=== PATIENT | male | born 1960 ===

== ENCOUNTER 2017-06-11 15:40 | Inpatient (IN) | payer MEDICAID ==
[2017-06-11] MEDS ORDERED: ceFAZolin 1 GM in Sodium Chloride 0.9% 100 ML IVPB ONE (15:59)
--- NOTE | 2017-06-11 15:59 | ED PDOC ---
Upper Extremity Pain/Injury Time Seen by Provider: 06/11/17 15:45 Chief Complaint (Nursing): Upper Extremity Problem/Injury Chief Complaint (Provider): Right Hand Swelling History Per: Patient History/Exam Limitations: no limitations Onset/Duration Of Symptoms: Days (x1) Current Symptoms Are (Timing): Still Present Additional Complaint(s): Jens Ross is a 57 year old male with a history of heroin and cocaine abuse that presents to the ED with a chief complaint of right hand swelling. Patient believes that he was pricked with a needle on the dorsal aspect of his right hand, but denies any drug use. Patient reports his last tetanus shot was 2 years ago. Past Medical History Reviewed: Historical Data, Nursing Documentation, Vital Signs Vital Signs: Last Vital Signs Temp 97.9 F 06/11/17 15:47 Pulse 69 06/11/17 15:47 Resp 16 06/11/17 15:47 BP 150/91 H 06/11/17 15:47 Pulse Ox 98 06/11/17 15:47 - Medical History PMH: Hepatitis (Hep C, patient states he is taking medication for it) - Family History Family History: States: Unknown Family Hx - Social History Drugs: Other (Patient reports hx of heroin and cocaine abuse) - Immunization History Hx Tetanus Toxoid Vaccination: Yes (last tetanus 2 years ago) - Home Medications Home Medications: Ambulatory Orders Medication Instructions Recorded Buprenorphine HCl/Naloxone HCl 1 each SL DAILY 06/11/17 [Suboxone 8 mg-2 mg Sl Film] Cephalexin [Keflex] 500 mg PO QID #28 capsule 06/11/17 Sofosbuvir/Velpatasvir [Epclusa 1 each PO TID 06/11/17 400 mg-100 mg Tablet] Sulfamethoxazole/Trimethoprim 2 tab PO BID #28 tab 06/11/17 [Bactrim DS 800 mg-160 mg] - Allergies Allergies/Adverse Reactions: Allergies Allergy/AdvReac Type Severity Reaction Status Date / Time No Known Allergies Allergy Verified 06/11/17 15:56 Review of Systems Musculoskeletal: Positive for: Hand Pain (Right hand swelling) Physical Exam - Reviewed Nursing Documentation Reviewed: Yes Vital Signs Reviewed: Yes - Physical Exam Appears: Positive for: Non-toxic, No Acute Distress Head Exam: Positive for: ATRAUMATIC, NORMOCEPHALIC Skin: Positive for: Normal Color, Warm Eye Exam: Positive for: Normal appearance, EOMI, PERRL Cardiovascular/Chest: Positive for: Regular Rate, Rhythm. Negative for: Murmur Respiratory: Positive for: Normal Breath Sounds. Negative for: Wheezing Pulses-Radial (L): 2+ Pulses-Radial (R): 2+ Extremity: Positive for: Normal ROM, Swelling (Moderate swelling of right hand) , Other (Mild erythema right hand, no obvious abscess) Neurologic/Psych: Positive for: Alert, Oriented. Negative for: Motor/Sensory Deficits - Laboratory Results Result Diagrams: 06/11/17 16:56 06/11/17 16:56 - ECG O2 Sat by Pulse Oximetry: 98 (RA) Pulse Ox Interpretation: Normal - Progress ED Course And Treament: HAND XRY JOINTS: Mild degenerative changes of the radiocarpal region. No periarticular osteoporosis seen. SOFT TISSUES: Mild soft tissue swelling along the dorsum and ulnar aspect of the hand. No underlying periosteal reaction or fracture clearly seen. OTHER FINDINGS: None. IMPRESSION: Nonspecific soft tissue swelling. No bony irregularity or fracture identified. No radiopaque foreign body. vaNCOMYCIN 1.5 GM IV X 1 DOSE ANCEF 1 GM IV X 1 DOSE D/W DR. WRIGHT WILL PLACED HAND CONSULT. Medical Decision Making Medical Decision Making: Impression: Infection of Right Hand Plan: * X-Ray Right Hand * BMP * CBC * Blood Culture * Ancef 1 g/100 mL NS * Vancomycin Injection 1500 mg, NaCl 0.9% 500 mL * Reevaluation Scribe Attestation: Documented by Anjana Evans, acting as a scribe for Asia Hogan PA-C. Provider Scribe Attestation: All medical record entries made by the Scribe were at my direction and personally dictated by me. I have reviewed the chart and agree that the record accurately reflects my personal performance of the history, physical exam, medical decision making, and the department course for this patient. I have also personally directed, reviewed, and agree with the discharge instructions and disposition. Disposition - Clinical Impression Clinical Impression: Cellulitis - Patient ED Disposition Is Patient to be Admitted: No - Disposition Disposition: Routine/Home Disposition Time: 19:37 Condition: FAIR - Pt Status Changed To: Hospital Disposition Of: Inpatient - Admit Certification Admit to Inpatient:: After my assessment, the patient will require hospitalization for at least two midnights. This is because of the severity of symptoms shown, intensity of services needed, and/or the medical risk in this patient being treated as an outpatient.
[2017-06-11] MEDS ORDERED: Vancomycin 1 g Inj ONE (16:56)
[2017-06-11 16:59] LABS: BASO % 0.2 % (0.0-2.0); EOS % 0.4 % (0.0-4.0); HEMATOCRIT 36.9 % (34.0-47.0); LYMPH # 1.6 K/uL (1.0-4.3); LYMPH % 21.2 % (20.0-40.0); MEAN CORPUSCULAR HEMOGLOBIN 28.7 pg (27.0-31.0); MEAN CORPUSCULAR HGB CONC 34.2 g/dL (33.0-37.0); MEAN PLATELET VOLUME 8.6 fl (7.2-11.7); MONO # 0.7 K/uL (0.0-0.8); MONO % 8.9 % (0.0-10.0); NEUT # 5.1 K/uL (1.8-7.0); NEUT % 69.3 % (50.0-75.0); NRBC % 0.1 % (0.0-0.0); WHITE BLOOD COUNT 7.3 K/uL (4.8-10.8)
[2017-06-11 17:20] LABS: BLOOD UREA NITROGEN 12 mg/dl (7-17); CALCIUM 8.7 mg/dL (8.4-10.2); CARBON DIOXIDE 25 mmol/L (22-30); CHLORIDE 104 mmol/L (98-107); GFR AFRICAN-AMERICAN > 60; GLUCOSE,RANDOM 116 mg/dL (65-105); POTASSIUM 4.3 MMOL/L (3.6-5.0); SODIUM 140 mmol/l (132-148)
--- NOTE | 2017-06-11 17:46 | RAD ---
PROCEDURE: Right Hand Radiographs. HISTORY: hand swelling COMPARISON: None. FINDINGS: BONES: Three views of the right hand were performed for right hand pain and swelling. No fracture is seen. No dislocation is noted. No erosion is seen. No periosteal reaction is identified. Carpal bones and distal radius are unremarkable without acute fracture. JOINTS: Mild degenerative changes of the radiocarpal region. No periarticular osteoporosis seen. SOFT TISSUES: Mild soft tissue swelling along the dorsum and ulnar aspect of the hand. No underlying periosteal reaction or fracture clearly seen. OTHER FINDINGS: None. IMPRESSION: Nonspecific soft tissue swelling. No bony irregularity or fracture identified. No radiopaque foreign body.
--- NOTE | 2017-06-11 20:27 | CP.PCM.HP ---
History of Present Illness - History of Present Illness History of Present Illness: Chief complaint: Hand swelling History of present illness: This is a 57-year-old male with a past medical history of hepatitis C, heroin and cocaine abuse for which he is on Suboxone, presenting with approximately 2 day history of worsening hand swelling and pain which she describes as pressure-like, acute onset, associated with erythema. 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 He is uncertain if he got scratched at that time. Patient was initiated on vancomycin and was also initiated on Zosyn to cover. Patient is afebrile without a white count, and comfortable at this time. Hand surgery consulted in the emergency room. Review of systems per HPI, all other systems reviewed and negative by me Past medical and surgical history: Hepatitis C, heroin and cocaine abuse. Right hip replacement. Family history: Denies Social history admits to heroin and cocaine use, last use was about a week ago, and patient has a prescription for Suboxone. No home medications No known drug allergies Vital signs as documented. Gen: WDWN, cooperative, alert HEENT: NCAT, PERRL, EOMI, no erythema, exudates, gross hearing intact, no lesions Neck: Soft, supple, no lymphadenopathy, no JVD Heart: +S1S2, RRR, No MRG Lung: CTAB, No WRR Abd: soft, NT, ND, BSx4, no HSM, no masses Ext: warm, well perfused, pedal pulses intact Neuro: AAOx3, Strength equal bilaterally UE/LE Skin: Warm, Dry, no rash Psych: Normal mood, affect with appropriate range Lab results 06/11/17 16:56 06/11/17 16:56 IMAGING STUDIES: hand x-ray showed nonspecific tissue swelling. No bony irregularity or fracture identified. No radiopaque foreign body. This is a 57-year-old male with a past medical history of hepatitis C, heroin and cocaine abuse for which he is on Suboxone, presenting with approximately 2 day history of worsening hand swelling and pain which she describes as pressure- like, acute onset, associated with erythema. 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 He is uncertain if he got scratched at that time. Patient was initiated on vancomycin and was also initiated on Zosyn to cover for both. Patient is afebrile without a white count, and comfortable at this time. Hand surgery consulted in the emergency room. Hand Cellulitis Patient is afebrile no white count Hand appears to be edematous, erythematous, tender, and limited to the hand Patient initiated on Vancomycin and Zosyn, given possible cat or dog scratch/ bite Hand surgery consultation appreciated Pain control Toradol and Tylenol Hepatitis C continue patient's Epclusa Heroin and cocaine abuse Patient states he is on Suboxone and has the prescription Zofran, Catapres, Imodium orders placed for possible withdrawal symptoms VT prophylaxis SCDs Present on Admission - Present on Admission Any Indicators Present on Admission: No Past Patient History - Infectious Disease Hx of Infectious Diseases: None - Past Social History Drugs: Other (Patient reports hx of heroin and cocaine abuse) - CARDIAC Hx Cardiac Disorders: No - PSYCHIATRIC Hx Substance Use: Yes (saboxin) Meds Home Medications: Home Medication List Medication Instructions Recorded Confirmed Type Cephalexin [Keflex] 500 mg PO QID #28 capsule 06/11/17 Rx Sulfamethoxazole/Trimethoprim 2 tab PO BID #28 tab 06/11/17 Rx [Bactrim DS 800 mg-160 mg] Allergies/Adverse Reactions: Allergies Allergy/AdvReac Type Severity Reaction Status Date / Time No Known Allergies Allergy Verified 06/11/17 15:56 Results - Vital Signs Recent Vital Signs: Last Vital Signs Temp 98 F 06/11/17 20:16 Pulse 84 06/11/17 20:16 Resp 18 06/11/17 20:16 BP 140/97 H 06/11/17 20:16 Pulse Ox 98 06/11/17 20:16 - Labs Result Diagrams: 06/11/17 16:56 06/11/17 16:56 Labs: Laboratory Results - last 24 hr 06/11/17 06/11/17 16:56 16:56 WBC 7.3 RBC 4.39 Hgb 12.6 Hct 36.9 MCV 84.0 MCH 28.7 MCHC 34.2 RDW 16.0 H Plt Count 182 MPV 8.6 Neut % (Auto) 69.3 Lymph % (Auto) 21.2 [place] % (Auto) 8.9 Eos % (Auto) 0.4 Baso % (Auto) 0.2 Neut # 5.1 Lymph # 1.6 [place] # 0.7 Eos # 0.0 Baso # 0.0 Sodium 140 Potassium 4.3 Chloride 104 Carbon Dioxide 25 Anion Gap 15 BUN 12 Creatinine 0.6 L Est GFR ( Amer) > 60 Est GFR (Non-Af Amer) > 60 Random Glucose 116 H Calcium 8.7
[2017-06-11] MEDS: Ampicillin/Sulbactam 1.5 GM in Sodium Chloride 0.9% 100 ML IVPB SCH (23:01)
[2017-06-12] MEDS: Ampicillin/Sulbactam 1.5 GM in Sodium Chloride 0.9% 100 ML IVPB SCH ×4 (01:00→17:33)
[2017-06-12 06:46] LABS: BASO % 0.1 % (0.0-2.0); EOS # 0.1 K/uL (0.0-0.7); EOS % 0.9 % (0.0-4.0); HEMATOCRIT 36.5 % (35.0-51.0); LYMPH # 2.6 K/uL (1.0-4.3); LYMPH % 34.9 % (20.0-40.0); MEAN CELL VOLUME 85.2 fl (80.0-94.0); MEAN CORPUSCULAR HEMOGLOBIN 28.3 pg (27.0-31.0); MEAN CORPUSCULAR HGB CONC 33.2 g/dL (33.0-37.0); MEAN PLATELET VOLUME 9.2 fl (7.2-11.7); MONO # 0.7 K/uL (0.0-0.8); MONO % 9.1 % (0.0-10.0); NEUT # 4.2 K/uL (1.8-7.0); NRBC % 0.1 % (0.0-0.0); RED CELL DISTRIBUTION WIDTH 16.1 % (11.5-14.5); WHITE BLOOD COUNT 7.6 K/uL (4.8-10.8)
[2017-06-12 06:47] LABS: BLOOD UREA NITROGEN 12 mg/dl (9-20); CALCIUM 8.5 mg/dL (8.4-10.2); CARBON DIOXIDE 27 mmol/L (22-30); CHLORIDE 105 mmol/L (98-107); GFR AFRICAN-AMERICAN > 60; GLUCOSE,RANDOM 100 mg/dL (75-110); POTASSIUM 3.9 MMOL/L (3.6-5.0); SODIUM 140 mmol/l (132-148)
[2017-06-12] MEDS ORDERED: SOFOSBUVIR PO SCH (09:00)
[2017-06-12] MEDS ORDERED: VELPATASVIR PO SCH (09:00)
--- NOTE | 2017-06-12 16:46 | CP.PCM.PN ---
Subjective - Date & Time of Evaluation Date of Evaluation: 06/12/17 Time of Evaluation: 10:00 - Subjective Subjective: Patient seen and examined bedside. With swelling , erythema and tenderness to right hand. Hemodynamically stable, aebrile WBC 7.6 No area of abscess or fluctuation noted. Objective - Vital Signs/Intake and Output Vital Signs (last 24 hours): Temp Pulse Resp BP Pulse Ox 97.5 F L 72 20 146/80 94 L 06/12/17 08:13 06/12/17 15:45 06/12/17 08:13 06/12/17 15:45 06/12/17 08:13 - Medications Medications: Current Medications Acetaminophen (Tylenol 325mg Tab) 650 mg PO Q6 PRN PRN Reason: Pain, moderate (4-7) Clonidine HCl (Catapres) 0.1 mg PO Q12 PRN PRN Reason: opioid withdrawal sx Last Admin: 06/12/17 15:45 Dose: 0.1 mg Home Med (Sofosbuvir/Velpatasvir [Epclusa 400 Mg-100 Mg Tablet]) 1 each PO TID RICARDA Vancomycin HCl 1 gm/ Sodium (Chloride) 250 mls @ 166.667 mls/hr IVPB Q12H RICARDA PRN Reason: Protocol Last Admin: 06/12/17 06:59 Dose: 166.667 mls/hr Ampicillin Sodium/Sulbactam (Sodium 1.5 gm/ Sodium Chloride) 100 mls @ 100 mls/ hr IVPB Q8 RICARDA PRN Reason: Protocol Last Admin: 06/12/17 10:18 Dose: 100 mls/hr Ketorolac Tromethamine (Toradol) 30 mg IVP Q6 PRN PRN Reason: Pain, severe (8-10) Last Admin: 06/12/17 12:56 Dose: 30 mg Loperamide HCl (Imodium) 2 mg PO QID PRN PRN Reason: Diarrhea Ondansetron HCl (Zofran Inj) 4 mg IVP Q6 PRN PRN Reason: Nausea/Vomiting - Labs Labs: 06/12/17 05:20 06/12/17 05:20 - Constitutional Appears: Non-toxic, No Acute Distress - Head Exam Head Exam: ATRAUMATIC, NORMAL INSPECTION, NORMOCEPHALIC - Eye Exam Eye Exam: EOMI, Normal appearance, PERRL Pupil Exam: NORMAL ACCOMODATION - ENT Exam ENT Exam: Mucous Membranes Moist, Normal Exam - Neck Exam Neck Exam: Full ROM, Normal Inspection - Respiratory Exam Respiratory Exam: Clear to Ausculation Bilateral, NORMAL BREATHING PATTERN. absent: Rales, Rhonchi, Wheezes - Cardiovascular Exam Cardiovascular Exam: REGULAR RHYTHM, RRR, +S1, +S2. absent: JVD - GI/Abdominal Exam GI & Abdominal Exam: Soft, Normal Bowel Sounds. absent: Distended, Guarding, Rebound - Rectal Exam Rectal Exam: Deferred - Extremities Exam Extremities Exam: Full ROM, Normal Capillary Refill, Normal Inspection. absent : Pedal Edema Additional comments: right hand erythema, edema and tenderness pulses intact capillary refill intact - Back Exam Back Exam: NORMAL INSPECTION - Neurological Exam Neurological Exam: Alert, Awake, CN II-XII Intact, Oriented x3 - Psychiatric Exam Psychiatric exam: Normal Affect, Normal Mood - Skin Skin Exam: Dry, Warm Additional comments: multiple healed scars to upper extremities from previous skin abscesses Assessment and Plan - Assessment and Plan (Free Text) Assessment: 57-year-old male with a past medical history of hepatitis C, heroin and cocaine abuse for which he is on Suboxone, presenting with approximately 2 day history of worsening hand swelling and pain which he describes as pressure-like, acute onset, associated with erythema. 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 He is uncertain if he got scratched at that time. Patient was initiated on vancomycin and was also initiated on Zosyn to cover for both. Patient is afebrile without a white count, and comfortable at this time. Hand surgery consulted in the emergency room. 1.Hand Cellulitis Patient is afebrile no white count Hand appears to be edematous, erythematous, tender, and limited to the hand Xray showed soft tissue swelling, edema on Vancomycin and Zosyn, given possible cat or dog scratch/bite Hand surgery consulted Pain control Toradol and Tylenol 2.Hepatitis C continue patient's Epclusa ( patient to bring his own medication ) 3. Heroin and cocaine abuse UDOA positive for cocaine and opiates last use of heroine was 1 week go with injection to left forearm Patient states he is on Suboxone and has the prescription at his pharmacy. Called patient's pharmacy and verified his list of medications( [phone]). As per pharmacy patient has a suboxone prescription given to him on 06/08 for 8 mg po TID by Dr. Vidal Wall . Family will bring in the medications [facility] to be administered while patient is in hospital Jeremy Gilliam Imodium orders placed for possible withdrawal symptoms 4.DVT prophylaxis SCDs
[2017-06-13] MEDS: Ampicillin/Sulbactam 1.5 GM in Sodium Chloride 0.9% 100 ML IVPB SCH ×3 (00:23→17:09)
[2017-06-13 07:02] LABS: BLOOD UREA NITROGEN 15 mg/dl (9-20); CALCIUM 8.9 mg/dL (8.4-10.2); CARBON DIOXIDE 27 mmol/L (22-30); CHLORIDE 106 mmol/L (98-107); GFR AFRICAN-AMERICAN > 60; GLUCOSE,RANDOM 133 mg/dL (75-110); POTASSIUM 3.9 MMOL/L (3.6-5.0); SODIUM 141 mmol/l (132-148)
[2017-06-13 07:14] LABS: HEMATOCRIT 35.6 % (35.0-51.0); MEAN CELL VOLUME 83.6 fl (80.0-94.0); MEAN CORPUSCULAR HEMOGLOBIN 28.9 pg (27.0-31.0); MEAN CORPUSCULAR HGB CONC 34.6 g/dL (33.0-37.0); RED CELL DISTRIBUTION WIDTH 15.8 % (11.5-14.5); WHITE BLOOD COUNT 6.4 K/uL (4.8-10.8)
--- NOTE | 2017-06-13 13:36 | CP.PCM.PN ---
Subjective - Date & Time of Evaluation Date of Evaluation: 06/13/17 Time of Evaluation: 10:00 - Subjective Subjective: Patient seen and examined bedside. Feeling better.Hemodynamically stable, afebrile. No acute issues overnight. Swelling and redness to right hand still present , mildly better. Objective - Vital Signs/Intake and Output Vital Signs (last 24 hours): Temp Pulse Resp BP Pulse Ox 97.9 F 62 18 147/83 96 06/13/17 07:54 06/13/17 07:54 06/13/17 07:54 06/13/17 07:54 06/13/17 07:54 - Medications Medications: Current Medications Acetaminophen (Tylenol 325mg Tab) 650 mg PO Q6 PRN PRN Reason: Pain, moderate (4-7) Clonidine HCl (Catapres) 0.1 mg PO Q12 PRN PRN Reason: opioid withdrawal sx Last Admin: 06/12/17 15:45 Dose: 0.1 mg Home Med (Sofosbuvir/Velpatasvir [Epclusa 400 Mg-100 Mg Tablet]) 1 each PO TID RICARDA Vancomycin HCl 1 gm/ Sodium (Chloride) 250 mls @ 166.667 mls/hr IVPB Q12H RICARDA PRN Reason: Protocol Last Admin: 06/13/17 07:50 Dose: 166.667 mls/hr Ampicillin Sodium/Sulbactam (Sodium 1.5 gm/ Sodium Chloride) 100 mls @ 100 mls/ hr IVPB Q8 RICARDA PRN Reason: Protocol Last Admin: 06/13/17 09:00 Dose: 100 mls/hr Ketorolac Tromethamine (Toradol) 30 mg IVP Q6 PRN PRN Reason: Pain, severe (8-10) Last Admin: 06/13/17 08:30 Dose: 30 mg Loperamide HCl (Imodium) 2 mg PO QID PRN PRN Reason: Diarrhea Ondansetron HCl (Zofran Inj) 4 mg IVP Q6 PRN PRN Reason: Nausea/Vomiting - Labs Labs: 06/13/17 06:20 06/13/17 06:20 - Constitutional Appears: Non-toxic, No Acute Distress - Head Exam Head Exam: ATRAUMATIC, NORMAL INSPECTION, NORMOCEPHALIC - Eye Exam Eye Exam: EOMI, Normal appearance, PERRL Pupil Exam: NORMAL ACCOMODATION - ENT Exam ENT Exam: Mucous Membranes Moist, Normal Exam - Neck Exam Neck Exam: Full ROM, Normal Inspection - Respiratory Exam Respiratory Exam: Clear to Ausculation Bilateral, NORMAL BREATHING PATTERN. absent: Rales, Rhonchi, Wheezes - Cardiovascular Exam Cardiovascular Exam: REGULAR RHYTHM, RRR, +S1, +S2. absent: JVD - GI/Abdominal Exam GI & Abdominal Exam: Soft, Normal Bowel Sounds. absent: Distended, Guarding, Tenderness, Rebound - Rectal Exam Rectal Exam: Deferred - Extremities Exam Extremities Exam: Full ROM, Normal Capillary Refill, Normal Inspection Additional comments: right hand swelling and redness pulses present capillary refill intact - Back Exam Back Exam: NORMAL INSPECTION - Neurological Exam Neurological Exam: Alert, Awake, CN II-XII Intact, Oriented x3 - Psychiatric Exam Psychiatric exam: Normal Affect, Normal Mood - Skin Skin Exam: Dry, Normal Color, Warm Additional comments: multiple upper extremities scars Assessment and Plan - Assessment and Plan (Free Text) Assessment: 57-year-old male with a past medical history of hepatitis C, heroin and cocaine abuse for which he is on Suboxone, presenting with approximately 2 day history of worsening hand swelling and pain which he describes as pressure-like, acute onset, associated with erythema. 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 He is uncertain if he got scratched at that time. Patient was initiated on vancomycin and was also initiated on Zosyn to cover for both. Patient is afebrile without a white count, and comfortable at this time. Hand surgery consulted in the emergency room. Right hand still swollen and with erythema 1.Hand Cellulitis Patient is afebrile no white count Hand appears to be edematous, erythematous, tender, and limited to the hand Xray showed soft tissue swelling, edema on Vancomycin and Zosyn, given possible cat or dog scratch/bite Hand surgery consulted Pain control Toradol and Tylenol 2.Hepatitis C continue patient's Epclusa ( patient to bring his own medication ) 3. Heroin and cocaine abuse UDOA positive for cocaine and opiates last use of heroine was 1 week go with injection to left forearm Patient is on Suboxone . Family brought in the prescription . On 8 mg po TID Zofran, Catapres, Imodium orders placed for possible withdrawal symptoms 4.DVT prophylaxis SCDs
--- NOTE | 2017-06-13 16:01 | CP.PCM.CON ---
History of Present Illness - History of Present Illness History of Present Illness: Plastic surgery consult note for Dr. Avendano Consulted for: right hand cellulitis Patient is a 57M with active heroin and cocain abuse who presented to the ED 2 days ago with worsening right hand redness and swelling. Patient states that he injected his right hand with heroin and noticed it becoming swollen, painful, and erythematous the next day. The second day after injection the symptoms got worse so he came to the ER. Patient denied fevers, chills, numbness, tingling, focal weakness, chest pain, SOB, or any other symptoms. Patient states that he has had this occur once before. Patient reports his symptoms have greatly improved after 2 days of antibiotics. Review of Systems - Review of Systems All systems: reviewed and no additional remarkable complaints except (as per HPI ) - Constitutional Constitutional: As Per HPI - Cardiovascular Cardiovascular: absent: Chest Pain, Chest Pain at Rest, Dyspnea - Respiratory Respiratory: absent: Cough, Dyspnea, Wheezing - Gastrointestinal Gastrointestinal: absent: Abdominal Pain, Nausea, Vomiting - Genitourinary Genitourinary: absent: Change in Urinary Stream, Difficulty Urinating, Dysuria - Musculoskeletal Musculoskeletal: absent: Muscle Weakness, Numbness, Tingling - Integumentary Integumentary: As Per HPI - Neurological Neurological: As Per HPI. absent: Numbness, Focal Weakness, Lack of Coordination, Sensory Deficit, Tingling Past Patient History - Infectious Disease Hx of Infectious Diseases: None - Past Medical History & Family History Past Medical History?: Yes - Past Social History Smoking Status: Former Smoker - CARDIAC Hx Cardiac Disorders: No - PULMONARY Hx Respiratory Disorders: No - NEUROLOGICAL Hx Neurological Disorder: No - HEENT Hx HEENT Problems: No - RENAL Hx Chronic Kidney Disease: No - ENDOCRINE/METABOLIC Hx Endocrine Disorders: No - HEMATOLOGICAL/ONCOLOGICAL Hx Hepatitis C: Yes - INTEGUMENTARY Hx Dermatological Problems: No - MUSCULOSKELETAL/RHEUMATOLOGICAL Hx Falls: No - GASTROINTESTINAL Hx Gastrointestinal Disorders: No - GENITOURINARY/GYNECOLOGICAL Hx Genitourinary Disorders: No - PSYCHIATRIC Hx Substance Use: Yes - SURGICAL HISTORY Other/Comment: rt hip replacement - ANESTHESIA Hx Anesthesia: Yes Hx Anesthesia Reactions: No Meds Home Medications: Home Medication List Medication Instructions Recorded Confirmed Type Cephalexin [Keflex] 500 mg PO QID #28 capsule 06/11/17 Rx Sulfamethoxazole/Trimethoprim 2 tab PO BID #28 tab 06/11/17 Rx [Bactrim DS 800 mg-160 mg] Allergies/Adverse Reactions: Allergies Allergy/AdvReac Type Severity Reaction Status Date / Time No Known Allergies Allergy Verified 06/11/17 15:56 - Medications Medications: Current Medications Acetaminophen (Tylenol 325mg Tab) 650 mg PO Q6 PRN PRN Reason: Pain, moderate (4-7) Clonidine HCl (Catapres) 0.1 mg PO Q12 PRN PRN Reason: opioid withdrawal sx Last Admin: 06/12/17 15:45 Dose: 0.1 mg Home Med (Sofosbuvir/Velpatasvir [Epclusa 400 Mg-100 Mg Tablet]) 1 each PO TID RICARDA Home Med (Buprenorphine Hcl/Naloxone Hcl [Suboxone 8 Mg-2 Mg Sl Film]) 1 each SL DAILY RICARDA Vancomycin HCl 1 gm/ Sodium (Chloride) 250 mls @ 166.667 mls/hr IVPB Q12H RICARDA PRN Reason: Protocol Last Admin: 06/13/17 07:50 Dose: 166.667 mls/hr Ampicillin Sodium/Sulbactam (Sodium 1.5 gm/ Sodium Chloride) 100 mls @ 100 mls/ hr IVPB Q8 RICARDA PRN Reason: Protocol Last Admin: 06/13/17 09:00 Dose: 100 mls/hr Ketorolac Tromethamine (Toradol) 30 mg IVP Q6 PRN PRN Reason: Pain, severe (8-10) Last Admin: 06/13/17 14:53 Dose: 30 mg Loperamide HCl (Imodium) 2 mg PO QID PRN PRN Reason: Diarrhea Ondansetron HCl (Zofran Inj) 4 mg IVP Q6 PRN PRN Reason: Nausea/Vomiting Physical Exam - Constitutional Appears: Non-toxic, No Acute Distress - Head Exam Head Exam: ATRAUMATIC, NORMOCEPHALIC - Eye Exam Eye Exam: Normal appearance. absent: Conjunctival injection, Scleral icterus - ENT Exam ENT Exam: Mucous Membranes Moist, Normal Oropharynx - Respiratory Exam Respiratory Exam: NORMAL BREATHING PATTERN. absent: Accessory Muscle Use, Respiratory Distress - Cardiovascular Exam Cardiovascular Exam: RRR - GI/Abdominal Exam GI & Abdominal Exam: Soft. absent: Distended, Tenderness - Extremities Exam Extremities exam: Negative for: calf tenderness, pedal edema, pedal pulses present Additional comments: right dorsal hand with 2+ non-pitting edema extending into the digits, erythematous, no induration or fluctuation, no drainage. Muscle strength and neurovascular exam intact - Neurological Exam Neurological exam: Alert, Oriented x3 - Psychiatric Exam Psychiatric exam: Normal Affect, Normal Mood - Skin Skin Exam: Dry, Intact, Normal Color, Warm Results - Vital Signs Recent Vital Signs: Last Vital Signs Temp 97.9 F 06/13/17 07:54 Pulse 62 06/13/17 07:54 Resp 18 06/13/17 07:54 BP 147/83 06/13/17 07:54 Pulse Ox 96 06/13/17 07:54 - Labs Result Diagrams: 06/13/17 06:20 06/13/17 06:20 Labs: Laboratory Results - last 24 hr 06/12/17 06/13/17 06/13/17 20:18 06:20 06:20 WBC 6.4 RBC 4.26 L Hgb 12.3 Hct 35.6 MCV 83.6 MCH 28.9 MCHC 34.6 RDW 15.8 H Plt Count 178 Sodium 141 Potassium 3.9 Chloride 106 Carbon Dioxide 27 Anion Gap 12 BUN 15 Creatinine 0.8 Est GFR ( Amer) > 60 Est GFR (Non-Af Amer) > 60 Random Glucose 133 H Calcium 8.9 Vancomycin Trough < 5.0 L Assessment & Plan - Assessment and Plan (Free Text) Assessment: 57M with cellulitis of right hand Plan: -No indication for surgical intervention at this time. No evidence of a drainable abscess or necrotic tissue or systemic infection -Continue IV antibiotics per primary's discretion -Continue to trend CBC -Pain medication PRN -Serial exams -Will continue to follow Discussed with Dr. Juan Alberto Lindsey, PGY2
[2017-06-13] MEDS: Patient's Own Med (Buprenorphine Hcl/Naloxone Hcl [Suboxone 8 Mg-2 Mg Sl Film] 1 EACH) SL SCH (16:04)
[2017-06-13 17:22] VITALS: RESP 20
[2017-06-14] MEDS: Ampicillin/Sulbactam 1.5 GM in Sodium Chloride 0.9% 100 ML IVPB SCH ×2 (01:28→09:11)
[2017-06-14 06:35] LABS: HEMATOCRIT 38.3 % (35.0-51.0); MEAN CELL VOLUME 84.4 fl (80.0-94.0); MEAN CORPUSCULAR HEMOGLOBIN 28.3 pg (27.0-31.0); MEAN CORPUSCULAR HGB CONC 33.6 g/dL (33.0-37.0); RED CELL DISTRIBUTION WIDTH 15.7 % (11.5-14.5); WHITE BLOOD COUNT 6.7 K/uL (4.8-10.8)
[2017-06-14 06:48] LABS: BLOOD UREA NITROGEN 18 mg/dl (9-20); CALCIUM 9.2 mg/dL (8.4-10.2); CARBON DIOXIDE 27 mmol/L (22-30); CHLORIDE 106 mmol/L (98-107); GFR AFRICAN-AMERICAN > 60; GLUCOSE,RANDOM 99 mg/dL (75-110); POTASSIUM 4.2 MMOL/L (3.6-5.0); SODIUM 142 mmol/l (132-148)
[2017-06-14 08:10] VITALS: BP 155/90; PULSE 55; TEMP 97.4; O2SAT 97
[2017-06-14] MEDS: Patient's Own Med (Buprenorphine Hcl/Naloxone Hcl [Suboxone 8 Mg-2 Mg Sl Film] 1 EACH) SL SCH (09:21)
--- NOTE | 2017-06-14 09:49 | CP.PCM.PN ---
Subjective - Date & Time of Evaluation Date of Evaluation: 06/14/17 Time of Evaluation: 06:50 - Subjective Subjective: Patient seen and examined at bedside this AM. NAEO. Patient states that pain and swelling have greatly improved and denies fevers Objective - Vital Signs/Intake and Output Vital Signs (last 24 hours): Temp Pulse Resp BP Pulse Ox 97.4 F L 55 L 20 155/90 H 97 06/14/17 08:10 06/14/17 08:10 06/14/17 08:10 06/14/17 08:10 06/14/17 08:10 - Medications Medications: Current Medications Acetaminophen (Tylenol 325mg Tab) 650 mg PO Q6 PRN PRN Reason: Pain, moderate (4-7) Clonidine HCl (Catapres) 0.1 mg PO Q12 PRN PRN Reason: opioid withdrawal sx Last Admin: 06/13/17 17:05 Dose: 0.1 mg Home Med (Sofosbuvir/Velpatasvir [Epclusa 400 Mg-100 Mg Tablet]) 1 each PO TID [facility] Home Med (Buprenorphine Hcl/Naloxone Hcl [Suboxone 8 Mg-2 Mg Sl Film]) 1 each SL DAILY [facility] Last Admin: 06/14/17 09:21 Dose: Not Given Vancomycin HCl 1 gm/ Sodium (Chloride) 250 mls @ 166.667 mls/hr IVPB Q12H RICARDA PRN Reason: Protocol Last Admin: 06/14/17 09:12 Dose: 166.667 mls/hr Ampicillin Sodium/Sulbactam (Sodium 1.5 gm/ Sodium Chloride) 100 mls @ 100 mls/ hr IVPB Q8 RICARDA PRN Reason: Protocol Last Admin: 06/14/17 09:11 Dose: 100 mls/hr Ketorolac Tromethamine (Toradol) 30 mg IVP Q6 PRN PRN Reason: Pain, severe (8-10) Last Admin: 06/14/17 09:18 Dose: 30 mg Loperamide HCl (Imodium) 2 mg PO QID PRN PRN Reason: Diarrhea Ondansetron HCl (Zofran Inj) 4 mg IVP Q6 PRN PRN Reason: Nausea/Vomiting - Labs Labs: 06/14/17 06:00 06/14/17 06:00 - Constitutional Appears: Non-toxic, No Acute Distress - Head Exam Head Exam: ATRAUMATIC, NORMOCEPHALIC - Eye Exam Eye Exam: Normal appearance. absent: Conjunctival injection, Scleral icterus - ENT Exam ENT Exam: Mucous Membranes Moist, Normal Oropharynx - Respiratory Exam Respiratory Exam: NORMAL BREATHING PATTERN. absent: Accessory Muscle Use, Respiratory Distress - Cardiovascular Exam Cardiovascular Exam: RRR - Extremities Exam Extremities Exam: absent: Calf Tenderness, Pedal Edema, Tenderness Additional comments: right dorsal hand with erythema and 1+ non-pitting edema much improved since yesterday. No area of fluctuance or drainage - Neurological Exam Neurological Exam: Alert, Awake, Oriented x3 - Psychiatric Exam Psychiatric exam: Normal Affect, Normal Mood - Skin Skin Exam: Dry, Intact, Normal Color, Warm Assessment and Plan - Assessment and Plan (Free Text) Assessment: 57M with cellulitis of right hand Plan: -No indication for surgical intervention. Patient clinically improving -Continue IV antibiotics per primary -Pain medication PRN -Serial exams Discussed with Dr. Juan Alberto Lindsey, PGY2
--- NOTE | 2017-06-14 11:32 | CP.PCM.DIS ---
Provider - Provider Date of Admission: 06/12/17 18:04 Attending physician: Jose Murry MD Consults: Hand Surgery : DR Avendano Time Spent in preparation of Discharge (in minutes): 35 Diagnosis - Discharge Diagnosis (1) Cellulitis of hand Status: Acute (2) Hep C w/o coma, chronic Status: Chronic (3) IVDU (intravenous drug user) Status: Chronic (4) Heroin abuse Status: Chronic (5) Cocaine abuse Status: Chronic Hospital Course - Lab Results Lab Results: Micro Results 06/11/17 17:15 Blood Blood Culture - Preliminary NO GROWTH AFTER 48 HOURS 06/11/17 16:56 Blood Blood Culture - Preliminary NO GROWTH AFTER 48 HOURS Most Recent Lab Values WBC 6.7 K/uL (4.8-10.8) 06/14/17 06:00 RBC 4.54 Mil/uL (4.40-5.90) 06/14/17 06:00 Hgb 12.9 g/dL (12.0-18.0) 06/14/17 06:00 Hct 38.3 % (35.0-51.0) 06/14/17 06:00 MCV 84.4 fl (80.0-94.0) 06/14/17 06:00 MCH 28.3 pg (27.0-31.0) 06/14/17 06:00 MCHC 33.6 g/dL (33.0-37.0) 06/14/17 06:00 RDW 15.7 % (11.5-14.5) H 06/14/17 06:00 Plt Count 191 K/uL (130-400) 06/14/17 06:00 MPV 9.2 fl (7.2-11.7) 06/12/17 05:20 Neut % (Auto) 55.0 % (50.0-75.0) 06/12/17 05:20 Lymph % (Auto) 34.9 % (20.0-40.0) 06/12/17 05:20 [place] % (Auto) 9.1 % (0.0-10.0) 06/12/17 05:20 Eos % (Auto) 0.9 % (0.0-4.0) 06/12/17 05:20 Baso % (Auto) 0.1 % (0.0-2.0) 06/12/17 05:20 Neut # 4.2 K/uL (1.8-7.0) 06/12/17 05:20 Lymph # 2.6 K/uL (1.0-4.3) 06/12/17 05:20 [place] # 0.7 K/uL (0.0-0.8) 06/12/17 05:20 Eos # 0.1 K/uL (0.0-0.7) 06/12/17 05:20 Baso # 0.0 K/uL (0.0-0.2) 06/12/17 05:20 Sodium 142 mmol/l (132-148) 06/14/17 06:00 Potassium 4.2 MMOL/L (3.6-5.0) 06/14/17 06:00 Chloride 106 mmol/L (98-107) 06/14/17 06:00 Carbon Dioxide 27 mmol/L (22-30) 06/14/17 06:00 Anion Gap 14 (10-20) 06/14/17 06:00 BUN 18 mg/dl (9-20) 06/14/17 06:00 Creatinine 0.7 mg/dL (0.8-1.5) L 06/14/17 06:00 Est GFR ( Amer) > 60 06/14/17 06:00 Est GFR (Non-Af Amer) > 60 06/14/17 06:00 Random Glucose 99 mg/dL (75-110) 06/14/17 06:00 Calcium 9.2 mg/dL (8.4-10.2) 06/14/17 06:00 Vancomycin Trough < 5.0 ug/mL (5.0-10.0) L 06/12/17 20:18 Urine Opiates Screen Positive (NEGATIVE) H 06/12/17 13:05 Urine Methadone Screen Negative (NEGATIVE) 06/12/17 13:05 Ur Barbiturates Screen Negative (NEGATIVE) 06/12/17 13:05 Ur Phencyclidine Scrn Negative (NEGATIVE) 06/12/17 13:05 Ur Amphetamines Screen Negative (NEGATIVE) 06/12/17 13:05 U Benzodiazepines Scrn Negative (NEGATIVE) 06/12/17 13:05 U Oth Cocaine Metabols Positive (NEGATIVE) H 06/12/17 13:05 U Cannabinoids Screen Negative (NEGATIVE) 06/12/17 13:05 - Hospital Course Hospital Course: 57-year-old male with a past medical history of hepatitis C, heroin and cocaine abuse for which he is on Suboxone, presenting with approximately 2 day history of worsening hand swelling and pain which he describes as pressure-like, acute onset, associated with erythema. 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 He is uncertain if he got scratched at that time. Patient was initiated on vancomycin and was also initiated on Zosyn to cover for both. Patient is afebrile without a white count, and comfortable at this time. Hand surgery consulted in the emergency room. 1.Hand Cellulitis Patient is afebrile no white count Hand now very much improved , erythema and swelling resolved , no able to do full ROM of hand Xray showed soft tissue swelling, edema on Vancomycin and Unasyn Hand surgery consulted- no surgical intervention Pain control Toradol and Tylenol Pt was advised to stay in hospital to continue IV antibiotic treatment however refused despite explanation of benefits /risk Will d/c pt on PO Bactrim and Keflex Pt is to ff up with his own ID doctor in [place] Advised to return to the ED if his sxs recurs 2.Hepatitis C continue patient's Epclusa ( patient to bring his own medication ) 3. Heroin and cocaine abuse UDOA positive for cocaine and opiates last use of heroine was 1 week ago with injection to left forearm Patient is on Suboxone . Family brought in the prescription . On 8 mg po TID Zofran, Catapres, Imodium orders placed for possible withdrawal symptoms 4.DVT prophylaxis SCDs Discharge Exam - Head Exam Head Exam: ATRAUMATIC, NORMAL INSPECTION, NORMOCEPHALIC - Eye Exam Eye Exam: EOMI, Normal appearance, PERRL Pupil Exam: NORMAL ACCOMODATION - ENT Exam ENT Exam: Mucous Membranes Moist, Normal External Ear Exam - Neck Exam Neck exam: Full Rom - Respiratory Exam Respiratory Exam: absent: Respiratory Distress - Cardiovascular Exam Cardiovascular Exam: REGULAR RHYTHM, +S1, +S2 - GI/Abdominal Exam GI & Abdominal Exam: Normal Bowel Sounds, Soft. absent: Tenderness - Extremities Exam Extremities exam: full ROM, normal capillary refill, pedal pulses present Additional comments: Right hand swellinga nd erythema resolved, now able to make fist and do all ROM - Back Exam Back exam: FULL ROM, NORMAL INSPECTION. absent: CVA tenderness (L), CVA tenderness (R), paraspinal tenderness, vertebral tenderness - Neurological Exam Neurological exam: Alert, CN II-XII Intact, Oriented x3, Reflexes Normal - Psychiatric Exam Psychiatric exam: Normal Affect, Normal Mood - Skin Skin Exam: Dry, Normal Color, Warm Additional comments: old scars jamarcus on extremities from skin popping and from IV drug Discharge Plan - Discharge Medications Prescriptions: Cephalexin [Keflex] 500 mg PO QID #28 capsule Cephalexin [Keflex] 500 mg PO Q12 #20 capsule cloNIDine [Catapres] 0.1 mg PO Q12 #60 tab Sulfamethoxazole/Trimethoprim [Bactrim DS 800 mg-160 mg] 1 tab PO BID #20 tab - Follow Up Plan Condition: IMPROVED Disposition: HOME/ ROUTINE Instructions: Cellulitis (DC) Additional Instructions: Pt refused to stay for IV antibiotics ff up with Dr Avendano in 1 wk appt with own ID specialist negra appt with PMD negra Referrals: Sidney Avendano DO [Resident] -
== END 2017-06-14 14:09 | disposition home or self-care (01) | DRG 277 ==
LOC: H.ER 15:40 → H.ERHOLD 19:42 → EDSEX 19:42 → H.MEDSURG1 22:00 → OBSVTOIN 06-12 18:04
DX: L03.113 Cellulitis of right upper limb (principal); B18.2 Chronic viral hepatitis C; F11.10 Opioid abuse, uncomplicated; F14.10 Cocaine abuse, uncomplicated; Z96.641 Presence of right artificial hip joint; Z87.891 Personal history of nicotine dependence

== ENCOUNTER 2018-11-08 16:40 | Emergency (ER) | payer MEDICAID ==
[2018-11-08 17:18] VITALS: O2SAT 99
[2018-11-08] MEDS ORDERED: Albuterol-Ipratrop 3 mg / 0.5 (3 ml) UD INH STA ×2 (18:32→19:51)
[2018-11-08] MEDS ORDERED: Albuterol-Ipratrop 3 mg / 0.5 (3 ml) UD ONE ×2 (18:36→20:19)
--- NOTE | 2018-11-08 19:20 | ED PDOC ---
History of Present Illness History of Present Illness: 58 year old male with a past medical history of HIV and prior heroin dependence on methadone who is presenting to the ED for evaluation of cough and body aches ongoing for 4-5 days. Patient states that cough is associated with greenish sputum that is getting thicker and now also complains of chest congestion. He also complains of subjective fever yesterday but denies any night sweats or c hills. Patient also denies any nausea, vomiting, diarrhea, chest pain, shortness of breath, or ear pain. Of note, patient also complains of mild sore throat and body aches, stating that he feels weak. PMD: none provided HPI: Influenza Time Seen by Provider: 11/08/18 17:55 Chief Complaint: Cough, Cold, Congestion Chief Complaint (Provider): Cough, Cold, Congestion History Per: Patient Exam Limitations: no limitations Onset/Duration Of Symptoms: Days Symptoms include: fever, bodyaches, sore throat, cough. denies: vomiting, diarrhea, chest pain, difficulty breathing Past Medical History Reviewed: Historical Data, Nursing Documentation, Vital Signs Vital Signs: Last Vital Signs Temp 98.3 F 11/08/18 17:16 Pulse 77 11/08/18 17:16 Resp 15 11/08/18 17:16 BP 126/72 11/08/18 17:16 Pulse Ox 99 11/08/18 17:16 - Medical History PMH: Hepatitis (Hep C, patient states he is taking medication for it), HIV Denies: Chronic Kidney Disease - Surgical History Surgical History: No Surg Hx - Family History Family History: States: Unknown Family Hx - Social History Current smoker - smoking cessation education provided: No Ex-Smoker (has not smoked in the last 12 months): Yes Alcohol: None Drugs: Opiates - Immunization History Hx Tetanus Toxoid Vaccination: Yes (last tetanus 2 years ago) - Home Medications Home Medications: Ambulatory Orders Medication Instructions Recorded Buprenorphine HCl/Naloxone HCl 1 each SL DAILY 06/11/17 [Suboxone 8 mg-2 mg Sl Film] Cephalexin [Keflex] 500 mg PO QID #28 capsule 06/11/17 Sofosbuvir/Velpatasvir [Epclusa 1 each PO TID 06/11/17 400 mg-100 mg Tablet] Cephalexin [Keflex] 500 mg PO Q12 #20 capsule 10/18/17 Sulfamethoxazole/Trimethoprim 1 tab PO BID #20 tab 06/14/17 [Bactrim DS 800 mg-160 mg] cloNIDine [Catapres] 0.1 mg PO Q12 #60 tab 06/14/17 cloNIDine [Catapres] 0.1 mg PO Q12 PRN tab 06/14/17 Amoxicillin/Clavulanate [Augmentin 1 tab PO BID #14 tab 05/04/18 875 MG-125 MG] Ibuprofen [Motrin] 600 mg PO Q6 #20 tab 05/04/18 Albuterol 0.083% [Albuterol 3 ml IH Q6 PRN 7 Days neb 11/08/18 Sulfate 3 Ml] Guaifenesin [Mucinex] 600 mg PO BID PRN 7 Days 11/08/18 tab.er.12h - Allergies Allergies/Adverse Reactions: Allergies Allergy/AdvReac Type Severity Reaction Status Date / Time No Known Allergies Allergy Verified 11/08/18 17:18 Review of Systems ROS Statement: Except As Marked, All Systems Reviewed And Found Negative Constitutional: Positive for: Fever, Weakness, Other (body aches ). Negative for: Chills, Sweats ENT: Positive for: Nose Discharge, Throat Pain. Negative for: Ear Pain Cardiovascular: Negative for: Chest Pain Respiratory: Positive for: Cough. Negative for: Shortness of Breath Gastrointestinal: Negative for: Nausea, Vomiting, Abdominal Pain Physical Exam - Reviewed Nursing Documentation Reviewed: Yes Vital Signs Reviewed: Yes - Physical Exam Appears: Positive for: Non-toxic, No Acute Distress, Uncomfortable Head Exam: Positive for: ATRAUMATIC, NORMAL INSPECTION, NORMOCEPHALIC Skin: Positive for: Normal Color, Warm, DRY ENT: Positive for: Normal ENT Inspection Neck: Positive for: Normal, Painless ROM Cardiovascular/Chest: Positive for: Regular Rate, Rhythm. Negative for: Murmur Respiratory: Positive for: Rhonchi (bilateral on expiration ). Negative for: Respiratory Distress Extremity: Positive for: Normal ROM. Negative for: Deformity, Swelling Lymphatic: Positive for: Normal Exam Neurological/Psych: Positive for: Awake, Alert, Normal Tone, Oriented (x3). Negative for: Motor/Sensory Deficits Medical Decision Making Medical Decision Making: Time: 18:32 Plan: --BMP --CBC --Chest X-ray PA/LAT --Duoneb x1 3 ml INH --Peak Flow Pre/Post Tx --Influenza A B Reevaluation: 20:00 Patient is improved but continues to have mild rhonchi and wheezes bilaterally duoneb x 1 ordered. chest xray read by me: no consolidation or active pulmonary disease appreciated; possible bronchitis. Reevaluation:21:00 Lungs with mild intermittent diffuse expiratory wheezes bilaterally, no rhonchi. He reports feeling better and is stable for Discharge home with return instructions. Scribe Attestation: Documented by Soha Cee, acting as a scribe for Gabrielle Moeller PA-C. Provider Scribe Attestation: All medical record entries made by the Scribe were at my direction and personally dictated by me. I have reviewed the chart and agree that the record accurately reflects my personal performance of the history, physical exam, medical decision making, and the department course for this patient. I have also personally directed, reviewed, and agree with the discharge instructions and disposition. - Laboratory Results Result Diagrams: 11/08/18 19:00 11/08/18 19:00 - ECG O2 Sat by Pulse Oximetry: 99 (RA) Pulse Ox Interpretation: Normal Disposition - Clinical Impression Clinical Impression: Bronchitis - Patient ED Disposition Is Patient to be Admitted: No - Disposition Disposition: Routine/Home Disposition Time: 21:10 Condition: STABLE Additional Instructions: Follow up with your primary care provider within the next week. Use Mucinex and Albuterol for cough. Return to ER if you develop fevers, chills, shortness of breath or night sweats. Prescriptions: Albuterol 0.083% [Albuterol Sulfate 3 Ml] 3 ml IH Q6 PRN 7 Days neb PRN Reason: Cough Guaifenesin [Mucinex] 600 mg PO BID PRN 7 Days tab.er.12h PRN Reason: Cough Instructions: Acute Bronchitis, Adult (DC) Forms: [facility] (Armenian) Print Language: BERMUDIAN
[2018-11-08 19:45] LABS: BASO % 0.2 % (0.0-2.0); EOS % 0.3 % (0.0-4.0); HEMOGLOBIN 12.4 g/dL (12.0-18.0); LYMPH # 1.8 K/uL (1.0-4.3); LYMPH % 29.9 % (20.0-40.0); MEAN CELL VOLUME 82.1 fl (80.0-94.0); MEAN CORPUSCULAR HEMOGLOBIN 27.1 pg (27.0-31.0); MEAN PLATELET VOLUME 8.6 fl (7.2-11.7); MONO # 0.6 K/uL (0.0-0.8); MONO % 9.4 % (0.0-10.0); NEUT # 3.7 K/uL (1.8-7.0); NEUT % 60.2 % (50.0-75.0); NRBC % 0.1 % (0.0-0.0); RBC 4.57 Mil/uL (4.40-5.90); RED CELL DISTRIBUTION WIDTH 15.3 % (11.5-14.5); WHITE BLOOD COUNT 6.1 K/uL (4.8-10.8)
[2018-11-08 19:52] LABS: BLOOD UREA NITROGEN 9 mg/dl (9-20); CALCIUM 9.3 mg/dL (8.4-10.2); GFR NON-AFRICAN AMERICAN > 60
[2018-11-08 20:49] VITALS: BP 132/70; PULSE 74; RESP 16; TEMP 98
--- NOTE | 2018-11-09 12:58 | RAD ---
Date of service: 11/08/2018 HISTORY: shortness of breath, cough COMPARISON: No prior. TECHNIQUE: Chest PA and lateral FINDINGS: LUNGS: Hyperinflation, manifestations of COPD. No active pulmonary disease. PLEURA: No significant pleural effusion identified. No pneumothorax apparent. CARDIOVASCULAR: No aortic atherosclerotic calcification present. Normal cardiac size. No pulmonary vascular congestion. OSSEOUS STRUCTURES: No significant abnormalities. VISUALIZED UPPER ABDOMEN: Normal. OTHER FINDINGS: None. IMPRESSION: No active disease. Concordant results with the preliminary interpretation rendered by the emergency department physician procedure.
== END 2018-11-08 21:19 | disposition home or self-care (01) ==
LOC: H.ER 16:40
DX: J40 Bronchitis, not specified as acute or chronic (principal); B20 Human immunodeficiency virus [HIV] disease; B19.20 Unspecified viral hepatitis C without hepatic coma; Z87.891 Personal history of nicotine dependence; Z79.899 Other long term (current) drug therapy; Z79.891 Long term (current) use of opiate analgesic